=== PATIENT | female | born 1965 | race Caucasian/White ===

== ENCOUNTER 2018-12-15 20:34 | Inpatient (IN) | payer BC, OTHER ==
[2018-12-15 21:31] LABS: Basophils % (A) 1 %; Eosinophils # (A) 0.1 k/uL (0-0.7); Eosinophils % (A) 2 %; HCT 40.8 % (34.0-46.0); HGB 13.9 gm/dL (11.4-16.0); Lymphocytes # (A) 1.5 k/uL (1.0-4.8); Lymphocytes % (A) 23 %; MCHC 34.1 g/dL (31.0-37.0); MCV 88.2 fL (80.0-100.0); Mean Platelet Volume 7.1; Monocytes # (A) 0.3 k/uL (0-1.0); Monocytes % (A) 4 %; Neutrophils # (A) 4.8 k/uL (1.3-7.7); Neutrophils % (A) 69 %; Platelet Count 199 k/uL (150-450); RBC 4.62 m/uL (3.80-5.40); WBC 6.8 k/uL (3.8-10.6)
[2018-12-15 21:39] LABS: ALT 32 U/L (9-52); AST 21 U/L (14-36); Alkaline Phosphatase 84 U/L (38-126); Anion Gap 8 mmol/L; Blood Urea Nitrogen 12 mg/dL (7-17); Calcium 8.9 mg/dL (8.4-10.2); Carbon Dioxide 27 mmol/L (22-30); Chloride 105 mmol/L (98-107); Glucose 190 mg/dL (74-99); Magnesium 1.9 mg/dL (1.6-2.3); Potassium 3.3 mmol/L (3.5-5.1); Sodium 140 mmol/L (137-145); Total Bilirubin 0.3 mg/dL (0.2-1.3); Total Protein 6.9 g/dL (6.3-8.2)
--- NOTE | 2018-12-15 21:56 | XR ---
EXAMINATION TYPE: XR chest 2V DATE OF EXAM: 12/15/2018 COMPARISON: 11/06/2015 HISTORY: Chest pain TECHNIQUE: Frontal and lateral views of the chest are obtained. FINDINGS: Heart and mediastinum are normal. Lungs are clear. Diaphragm is normal. Bony thorax is int act. IMPRESSION: Normal chest. No change.
[2018-12-15 22:03] LABS: D-Dimer <0.17 mg/L FEU (<0.60); INR 0.9 (<1.2); Prothrombin Time 10.2 sec (9.0-12.0)
[2018-12-15] MEDS ORDERED: ASPIRIN 81 MG PO STA (22:35)
[2018-12-15] MEDS ORDERED: NITROGLYCERIN SL TABS 0.4 MG TAB SUBLINGUAL STA (23:17)
[2018-12-15] MEDS ORDERED: NITROGLYCERIN OINT 1 INCH/GM PACKET TOPICAL STA (23:18)
[2018-12-15] MEDS ORDERED: ACETAMINOPHEN TAB 325 MG TAB PO STA (23:36)
[2018-12-15] MEDS ORDERED: IBUPROFEN 400 MG TAB PO STA (23:36)
[2018-12-15] MEDS ORDERED: ONDANSETRON 4 MG/2 ML VIAL IVP STA (23:38)
[2018-12-15] MEDS ORDERED: NITROGLYCERIN SL TABS 0.4 MG TAB SUBLINGUAL PRN (23:42)
[2018-12-16] MEDS ORDERED: ENOXAPARIN 40 MG/0.4 ML SYRINGE SQ SCH (00:15)
--- NOTE | 2018-12-16 00:48 | ED ---
Chest Pain HPI - General Chief Complaint: Chest Pain Stated Complaint: Chest Pain Time Seen by Provider: 12/15/18 21:01 Source: patient, EMS Mode of arrival: EMS Limitations: no limitations - History of Present Illness Initial Comments: This patient is a 53-year-old woman who presents to be evaluated after having an episode of chest pain tonight. The patient states that the pain started approximately 3 hours ago. She had been driving home from a soccer game. She indicates the pain was and substernal area and seemed to radiate to her back. She describes as a severe heavy feeling and that there was some shortness of breath associated. Patient does state that the pain is resolved and she things that lasted about 20 minutes or so. She states that she did have similar episode to this years ago. She states that she was seen and had an elevated heart enzymes but that it was felt to be due to a viral infection. She states that she did have a heart catheterization performed after that and was told that it was normal. MD Complaint: chest pain -: hour(s) Onset: other (While driving) Pain Location: substernal Pain Radiation: back Severity: severe Quality: heaviness Consistency: now resolved Improves With: nothing Worsens With: nothing Anginal Symptoms: dyspnea Treatments Prior to Arrival: none - Related Data Home Medications Medication Instructions Recorded Confirmed Flaxseed Oil 1,000 mg PO DAILY 12/15/18 12/15/18 Iodine 1 dose PO DAILY 12/15/18 12/15/18 [place]-3 Fatty Acids/Fish Oil [Fish 1 cap PO DAILY 12/15/18 12/15/18 Oil 1,000 mg Softgel] Thyroid,Pork [Donner Thyroid] 60 mg PO DAILY 12/15/18 12/15/18 Allergies Allergy/AdvReac Type Severity Reaction Status Date / Time No Known Allergies Allergy Verified 12/15/18 21:22 Review of Systems ROS Statement: Those systems with pertinent positive or pertinent negative responses have been documented in the HPI. ROS Other: All systems not noted in ROS Statement are negative. Constitutional: Denies: fever, chills, weakness Respiratory: Reports: as per HPI, dyspnea. Denies: cough, wheezes Cardiovascular: Reports: chest pain. Denies: palpitations, orthopnea, edema, syncope Gastrointestinal: Denies: abdominal pain, nausea, vomiting Genitourinary: Denies: dysuria, hematuria Musculoskeletal: Denies: back pain Skin: Denies: rash Neurological: Denies: headache, weakness, numbness Past Medical History Past Medical History: Myocardial Infarction (CT), Thyroid Disorder History of Any Multi-Drug Resistant Organisms: None Reported Past Surgical History: Heart Catheterization Past Psychological History: No Psychological Hx Reported Smoking Status: Never smoker Past Alcohol Use History: None Reported Past Drug Use History: None Reported General Exam Limitations: no limitations General appearance: alert, in no apparent distress Head exam: Present: atraumatic, normocephalic Eye exam: Present: normal appearance ENT exam: Present: normal oropharynx Neck exam: Present: normal inspection Respiratory exam: Present: normal lung sounds bilaterally. Absent: respiratory distress, wheezes, rales, rhonchi, stridor Cardiovascular Exam: Present: regular rate, normal rhythm, normal heart sounds. Absent: systolic murmur, diastolic murmur, rubs, gallop GI/Abdominal exam: Present: soft. Absent: distended, tenderness, guarding, rebound Extremities exam: Present: normal inspection, normal capillary refill. Absent: pedal edema, calf tenderness Back exam: Present: normal inspection. Absent: CVA tenderness (R), CVA tenderness (L) Neurological exam: Present: alert Skin exam: Present: warm, dry, intact, normal color. Absent: rash Course Vital Signs 12/15/18 12/15/18 12/16/18 20:55 23:06 00:00 Temperature 98.5 F Pulse Rate 81 77 74 Respiratory 18 16 16 Rate Blood Pressure 187/100 165/101 139/86 O2 Sat by Pulse 97 98 95 Oximetry 12/16/18 06:10 Temperature Pulse Rate 77 Respiratory 16 Rate Blood Pressure 131/86 O2 Sat by Pulse 99 Oximetry - Reevaluation(s) Reevaluation #1: 12/16/18 08:12 Case discussed with supervisor winter and they will see the patient. Chest Pain [facility] Patient is 53-year-old woman with episode of chest pain earlier tonight lasting approximately 20 minutes that has resolved. She is symptom-free at the moment. Patient's description of pain is fairly typical and will be admitted. She does have minimal elevation of troponin though her EKG not showing what appears to be any active ischemia/infarction. Disposition Clinical Impression: Chest pain, Elevated troponin I measurement Disposition: ADMITTED IP TO THIS HOSP Condition: Serious Is patient prescribed a controlled substance at d/c from ED?: No
[2018-12-16] MEDS: ENOXAPARIN 80 MG/0.8 ML SYRINGE SQ SCH ×3 (02:23→22:26)
[2018-12-16 03:56] LABS: Cholesterol 193 mg/dL (<200); HDL Cholesterol 53 mg/dL (40-60); LDL Cholesterol,Calculated 130 mg/dL (0-99); Triglycerides 52 mg/dL (<150)
--- NOTE | 2018-12-16 09:29 | CONS ---
CONSULTATION CHIEF COMPLAINT: Chest pain. Caitlin is a 53-year-old lady with history of hypothyroidism who presented to hospital complaining of chest pain, which started around 7:30 yesterday while she was driving home from the soccer game. She describes it as a precordial chest pressure that radiated to her back. Describes it as a heavy sensation associated with shortness of breath. The pain gradually resolved after 20 minutes. She has had similar symptoms 15 years ago and apparently underwent cardiac catheterization at that time. She has had 2 sets of cardiac enzymes that are mildly elevated. At the time of my evaluation, she is comfortable at rest and is free of symptoms. REVIEW OF SYSTEMS: HEENT is unremarkable. CARDIAC: As described above RESPIRATORY: As described above. GI: Negative. GENITOURINARY: Negative. ALLERGY/IMMUNOLOGY: Negative. SKIN: Negative. MUSCULOSKELETAL: Negative. ENDOCRINE: Negative. DERM: Negative. CONSTITUTIONAL: Negative. ONCOLOGICAL: Negative. Rest of the system review is not relevant. PAST MEDICAL HISTORY: Past medical history is significant for hypothyroidism. SOCIAL HISTORY: Social history is negative for smoking, EtOH abuse or drug abuse. PHYSICAL EXAMINATION: On exam, she appears comfortable at rest. Vital signs are stable. There is no jugular venous distention. Carotid upstroke is normal. There is no bruit. Chest exam reveals good air entry bilaterally. Heart exam reveals first and second heart sounds. No gallop. No murmur. No rub. Abdomen is soft, nontender. Examination of extremities did not reveal any edema. Peripheral pulses are felt. LABS: Labs show a total cholesterol of 190, LDL is 130, HDL is 53. Tropes are 0.04 and 0.1. Hemoglobin is 13.9, platelet count is 199. Potassium is 3.3. Creatinine is normal at 0.75. ASSESSMENT: Acute non ST-segment elevation myocardial infarction. PLAN: I am going to obtain a 2-D echo on her. Review her EKG. Please supplement her potassium. I advised the patient to undergo cardiac catheterization to rule out ischemic heart disease. I will obtain a 2D echo to evaluate LV function and wall motion. JUSTO / DIAZ: [id number] /
[2018-12-16] MEDS ORDERED: ACETAMINOPHEN TAB 325 MG TAB PO STA (10:04)
[2018-12-16] MEDS: POTASSIUM CHLORIDE ER 20 MEQ TAB.ER PO SCH ×2 (10:17→10:55)
[2018-12-16] MEDS: ASPIRIN 325 MG TAB PO SCH (12:44)
[2018-12-16] MEDS: METOPROLOL SUCCINATE (ER) 25 MG TAB.ER.24H PO SCH (12:44)
[2018-12-16] MEDS: THYROID PORK 60 MG PO SCH (14:02)
--- NOTE | 2018-12-16 18:58 | ECHOF ---
Referral Reason:chest pain MEASUREMENTS -------- HEIGHT: 165.1 cm WEIGHT: 86.2 kg BP: IVSd: 1.4 cm (0.6 - 1.1) LVIDd: 4.5 cm (3.9 - 5.3) LVPWd: 1.4 cm (0.6 - 1.1) IVSs: 1.6 cm LVIDs: 4.2 cm LVPWs: 1.6 cm LA Diam: 3.2 cm (2.7 - 3.8) Ao Diam: 2.7 cm (2.0 - 3.7) AV Cusp: 2.0 cm (1.5 - 2.6) LA Diam: 3.0 cm (2.7 - 3.8) MV EXCURSION: 19.783 mm (> 18.000) MV EF SLOPE: 115 mm/s (70 - 150) EPSS: 0.4 cm MV E Jonh: 0.53 m/s MV DecT: 280 ms MV A Jonh: 0.94 m/s MV E/A Ratio: 0.56 RAP: 5.00 mmHg RVSP: 17.13 mmHg FINDINGS -------- Sinus rhythm. This was a technically adequate study. The left ventricular size is normal. There is moderate concentric left ventricular hypertrophy. O verall left ventricular systolic function is normal with, an EF between 55 - 60 %. The right ventricle is normal in size. The left atrial size is normal. The right atrial size is normal. Interatrial and interventricular septum intact. The aortic valve is trileaflet, and appears structurally normal. No aortic stenosis or regurgitation. Mild mitral annular calcification present. Mild mitral regurgitation is present. Mild tricuspid regurgitation present. There is no evidence of pulmonary hypertension. The right v entricular systolic pressure, as measured by Doppler, is 17.13mmHg. There is no pulmonic regurgitation present. The aortic root size is normal. Normal inferior vena cava with normal inspiratory collapse consistent with estimated right atrial pre ssure of 5 mmHg. There is no pericardial effusion. CONCLUSIONS -------- 1. The left ventricular size is normal. 2. There is moderate concentric left ventricular hypertrophy. 3. Overall left ventricular systolic function is normal with, an EF between 55 - 60 %. 4. The right ventricle is normal in size. 5. The left atrial size is normal. 6. The right atrial size is normal. 7. Interatrial and interventricular septum intact. 8. The aortic valve is trileaflet, and appears structurally normal. No aortic stenosis or regurgitati on. 9. Mild mitral annular calcification present. 10. Mild mitral regurgitation is present. 11. Mild tricuspid regurgitation present. 12. There is no evidence of pulmonary hypertension. 13. The right ventricular systolic pressure, as measured by Doppler, is 17.13mmHg. 14. There is no pulmonic regurgitation present. 15. The aortic root size is normal. 16. Normal inferior vena cava with normal inspiratory collapse consistent with estimated right atrial pressure of 5 mmHg. 17. There is no pericardial effusion. CENTRIFUGAL OPERATOR: Aysha Davis RDCS
[2018-12-16] MEDS ORDERED: ATORVASTATIN 40 MG TAB PO SCH (21:00)
--- NOTE | 2018-12-16 22:31 | HP ---
HISTORY AND PHYSICAL DATE OF ADMISSION: 12/15/2018 DATE OF SERVICE: 12/16/2018 PRESENTING COMPLAINT: Chest pain. HISTORY OF PRESENTING COMPLAINT: This is a very pleasant 53-year-old patient of Dr. Yin out of [employer]. Chronic stable medical conditions include hypothyroid. Patient was driving home with her daughter when she developed intense anterior chest wall pain. The pain also did go a bit to her back. Patient was somewhat short of breath. Pain went down the left arm and left arm was aching. All the symptoms lasted for a good hour. Patient had a troponin leak, peaking at 0.148. She was seen by Dr. Uvaldo Sullivan in the morning. At that time patient declined cardiac catheterization. Since then, patient has had no further symptoms. Patient has been on a therapeutic dose of Lovenox. No prior cardiac history. There was no dizziness. No lightheadedness. Patient recently has been feeling a bit tired. is present. REVIEW OF SYSTEMS: CONSTITUTIONAL: Tired. HEENT: None. RESPIRATORY: As above. CARDIOVASCULAR: As above. GASTROINTESTINAL: None. GENITOURINARY: None. MUSCULOSKELETAL: None. DERMATOLOGICAL: None. HEMATOLOGICAL: None. LYMPHATICS: None. PSYCHIATRY: None. NEUROLOGICAL: None. PAST MEDICAL HISTORY: 1. Hypothyroid. 2. Endocarditis. PAST SURGICAL HISTORY: Cardiac catheterization 13 years ago that was normal. SOCIAL HISTORY: . No smoking. No alcohol. FAMILY HISTORY: Congestive heart failure. Father of congestive heart failure, age of 79. HOME MEDICATIONS: 1. Iodine 1 dose a day. 2. Fish oil 1 capsule p.o. daily. 3. Flaxseed oil 1000 mg p.o. daily. 4. [place] Thyroid 60 mg a day. ALLERGIES: NONE. PHYSICAL EXAMINATION: Temperature 97.3, pulse 80, respiration 16, blood pressure 156/98, pulse ox 93% on room air. GENERAL APPEARANCE: Well built; BMI 31.6. Sitting up, not in distress. EYES: Pupils equal. Conjunctivae normal. HEENT: External appearance of nose and ears normal. Oral cavity normal. NECK: JVD not raised. Mass not palpable. RESPIRATORY: Effort normal. LUNGS: Fair air entry. CARDIOVASCULAR: First and second sounds normal. No edema. ABDOMEN: Soft, non-tender. Liver and spleen not palpable. LYMPHATIC: No lymph node palpable in neck or axillae. PSYCHIATRY: Alert and oriented x3. Mood and affect normal. NEUROLOGICAL: Pupils equal. Cranial nerves grossly intact. Power and sensation grossly intact. INVESTIGATIONS: White count 6.8, hemoglobin 13.9. Potassium 3.3. BUN and creatinine are normal. Troponin 0.046, 0.148, 0.059. LDL is 130. EKG tracing, personally reviewed by me, shows nonspecific ST-segment changes. Two-D echo shows moderate concentric left ventricular hypertrophy. No obvious wall motion abnormality. Chest x-ray film, personally reviewed by me, shows no evidence of lung field infiltrates. ASSESSMENT: 1. Cardiac-sounding presentation in a patient presenting now with an acute non-Q-wave myocardial infarction with a cardiac-sounding presentation with some rise and fall in troponin and nonspecific findings on the EKG. 2. Hypertensive heart disease. 3. Hypothyroidism. PLAN: The patient is on aspirin and Lovenox. I had a lengthy talk with the patient and her . Patient wishes to proceed with cardiac catheterization. I did tell the nurse to inform Cardiology evaluation engineer that the patient is agreeable to cardiac catheterization tomorrow morning. Patient will be made n.p.o. after midnight except for her medications. MMODL / IJN: [id number] /
--- NOTE | 2018-12-17 01:26 | US ---
EXAM: US Chest CLINICAL HISTORY: ITS.REASON US Reason: left upper chest wall r/o hematoma TECHNIQUE: Real-time ultrasound of the chest with image documentation. COMPARISON: No relevant prior studies available. FINDINGS: Soft tissues: Unremarkable. No mass or fluid collection. Lymph nodes: Unremarkable. No lymphadenopathy. IMPRESSION: Normal chest ultrasound.
[2018-12-17] MEDS: ASPIRIN 325 MG TAB PO SCH (06:35)
[2018-12-17] MEDS: METOPROLOL SUCCINATE (ER) 25 MG TAB.ER.24H PO SCH (06:35)
[2018-12-17] MEDS: THYROID PORK 60 MG PO SCH (06:35)
[2018-12-17 08:36] LABS: Calcium 9.3 mg/dL (8.4-10.2); Potassium 4.2 mmol/L (3.5-5.1)
[2018-12-17 08:50] VITALS: RESP 18
--- NOTE | 2018-12-17 10:31 | CONS ---
DATE OF CONSULTATION: 12/16/2018 This is a 53-year-old female. She has been admitted to [facility] with chest pain. Patient has a mildly elevated troponin. Patient has a cardiac workup including 2D echo. I was called in when the patient developed sudden onset of hematoma in the anterior chest wall. No history of trauma. Patient is on Lovenox. No history of any discomfort. There is slight tenderness noted along the anterior chest wall. MEDICAL HISTORY: History of hypothyroidism. Patient had a heart cath 15 years ago. PHYSICAL EXAMINATION: Patient was seen in her room, lying comfortably in bed. NECK: Supple. No bruit appreciated. CHEST: Clear. There is a hematoma noted on the chest wall on the left side which is not expanding, most likely venous in origin. At this point, hematoma was decompressed and will watch very closely. Patient is scheduled to have an ultrasound of the hematoma. Will hold the Lovenox and discussed with Dr. Ramírez if this is expanding, we will consider doing CT. At this point, patient is very stable. MMODL / IJN: [id number] / MTDD
[2018-12-17] MEDS ORDERED: ATORVASTATIN 80 MG TAB PO STA (11:08)
[2018-12-17] MEDS ORDERED: SODIUM CHLORIDE 0.9% 1,000 ML in EMPTY BAG 1 BAG IV ONE (11:08)
[2018-12-17] MEDS ORDERED: ALPRAZolam 0.5 MG TAB PO PRN (11:08)
[2018-12-17] MEDS ORDERED: NITROGLYCERIN SL TABS 0.4 MG TAB SUBLINGUAL PRN (11:08)
[2018-12-17] MEDS ORDERED: ALPRAZolam 0.25 MG TAB PO PRN (11:08)
[2018-12-17] MEDS ORDERED: ASPIRIN 325 MG TAB PO STA (11:08)
[2018-12-17] MEDS ORDERED: LIDOCAINE 1% INJ 10MG/ML (20 ML MDV) ONE (11:52)
[2018-12-17] MEDS ORDERED: HEPARIN SODIUM 1,000 UN/ML (10ML VL) ONE (11:52)
[2018-12-17] MEDS ORDERED: fentaNYL (PF) 50 MCG/ML 2 ML AMP ONE (11:52)
[2018-12-17] MEDS ORDERED: VERAPAMIL 2.5 MG/ML 2 ML AMP ONE (11:52)
[2018-12-17] MEDS ORDERED: SODIUM CHLORIDE 0.9% 1,000 ML IV ONE (12:12)
[2018-12-17] MEDS ORDERED: fentaNYL (PF) 50 MCG/ML 2 ML AMP IVP ONE (12:18)
[2018-12-17] MEDS ORDERED: MIDAZOLAM (PF) 2 MG/2 ML VIAL IVP ONE (12:18)
[2018-12-17] MEDS ORDERED: LIDOCAINE 2% INJ 20 MG/ML SQ ONE (12:20)
[2018-12-17] MEDS ORDERED: HEPARIN SODIUM 1,000 UN/ML (10ML VL) IV ONE (12:25)
[2018-12-17] MEDS ORDERED: IOPAMIDOL-370 125ML BTL INJ ONE (12:30)
[2018-12-17] MEDS ORDERED: RX INFO: IV CONTRAST WAS GIVEN 1 EACH MISC MISCELLANE PRN (12:46)
[2018-12-17] MEDS ORDERED: SODIUM CHLORIDE 0.9% 1,000 ML IV SCH (13:00)
[2018-12-17] MEDS ORDERED: amLODIPine 5 MG TAB PO SCH (13:00)
[2018-12-17 14:54] VITALS: TEMP 98.2
--- NOTE | 2018-12-17 15:31 | CC ---
CARDIAC CATHETERIZATION REPORT Mrs. Chen is a 53-year-old female with no documented history of obstructive coronary artery disease, who presented to the emergency room with episode of chest discomfort, no EKG changes, but with minimal enzymatic changes. In view of that, recommendation made regarding cardiac catheterization. The procedure as well as risks and complications were discussed with the patient who is in full understanding and agreement. PROCEDURE: Patient was brought to lab director in the fasting state after receiving fentanyl and Benadryl and achieving moderate conscious sedated state. Using Xylocaine anesthesia and Seldinger technique, a 6-Telugu sheath was introduced in the right radial artery. Selective right and left coronary angiography performed using 5-Telugu 3 and half bend right and left Catrachita catheter multiple views including hemiaxial views obtained. Following that, a 5-Telugu tight pigtail catheter was introduced in the left ventricle and a 30 degree BRICEÑO view of the left ventricle was obtained. Following that, catheter and sheaths were removed. Hemostasis was obtained with deployment of TR band. There was no immediate complication. Patient was returned to her room in stable condition. Of note, the patient received 4500 units of intravenous heparin as well as intra- arterial verapamil. FINDINGS: LEFT MAIN : This is a large-sized vessel trifurcating into left circumflex, left anterior descending artery and ramus intermedius, left main coronary artery has no evidence of high-grade stenosis. LEFT ANTERIOR DESCENDING ARTERY: This is a large-sized vessel tapers down to the distal third, giving rise to small diagonal branch. The left anterior descending artery as well as branches have no evidence of obstructive coronary artery disease. RAMUS INTERMEDIUS: This is a large-sized vessel reaching to the apical lateral wall. The left circumflex as well as branches have no evidence of obstructive coronary artery disease. LEFT CIRCUMFLEX: This is a large nondominant vessel giving rise to 2 obtuse marginal branches. The left circumflex as well as branches have no evidence of obstructive disease. RIGHT CORONARY ARTERY: This is a large dominant vessel bifurcating distally PDA and posterolateral segment branches. The right coronary artery and its branches have no evidence of obstructive coronary artery disease. LEFT VENTRICULOGRAM: Left ventriculogram was performed in 30 degree BRICEÑO view and reveals normal left ventricular size and systolic function. Ejection fraction 60%. There was no significant mitral regurgitation. HEMODYNAMICS: There was no gradient across the aortic valve. The left ventricular end-diastolic pressure was 12-14 mmHg. CONCLUSION: 1. Normal coronary arteries. 2. Normal left ventricular size and systolic function. RECOMMENDATIONS: It is possible that her symptoms are related vasospastic coronary artery disease. I see no evidence of obstructive coronary artery disease. I will continue medical therapy and depending on her progress, further recommendations will be made. Those findings and recommendations were discussed with the patient and her family and they are in full understanding and agreement. Duration of procedure is 18 minutes. MMODL / IJN: [id number] /
[2018-12-17 17:22] VITALS: BP 136/83; PULSE 79
--- NOTE | 2018-12-18 00:09 | DS ---
DISCHARGE SUMMARY DATE OF ADMISSION: 12/16/2018 DATE OF DISCHARGE: 12/17/2018. FINAL DIAGNOSES: 1. Possible acute non-Q-wave myocardial infarction, could be from underlying vasospastic disease. 2. Hypertensive heart disease. 3. Hypothyroidism. 4. Small spontaneous hematoma. HOSPITAL COURSE: This patient with a rather very classical cardiac sounding presentation and also add troponins with the rise and fall from 0.046-0.148 down to 0.059. Cardiac cath did show normal coronaries. Impression of Dr. Real that this could be vasospastic disease. The patient did have a small spontaneous hematoma anterior chest wall that settled down. Care was discussed with the patient today and also with the . PHYSICAL EXAMINATION: On examination temperature 98.2, pulse 76, respiratory rate 18, blood pressure 138/81, pulse ox 95% on room air. It may be noted that the patient's blood pressure was running high before. Medications were changed. LUNGS are clear. CARDIOVASCULAR: First and second sounds normal. LDL is 130. Blood pressure was up to 160s. DISCHARGE MEDICATIONS: 1. Thyroid [place] 60 mg a day. 2. Aspirin 81 mg daily. 3. Lipitor 40 mg q.h.s. 4. Toprol-XL 25 mg a day. 5. Norvasc 5 mg q.h.s. Follow up with Dr. Jr Yin in [place] in 1 week, follow up with Dr. Uvaldo Sullivan in [address] Yin [place]. MMGILBERTL / SURINDERN: [id number] /
[2018-12-18] MEDS ORDERED: ASPIRIN 81 MG PO SCH (09:00)
== END 2018-12-17 17:57 | disposition home or self-care (01) | DRG 282 ==
LOC: EC 20:34 → 1SOBS 12-16 00:04 → 3SCARD 12-16 04:50 → 2ORMAIN 12-16 08:58 → 3SCARD 12-16 10:49 → OBSVTOIN 12-16 14:03
PROVIDERS: ADMIT Hospitalist; ATTEND Hospitalist
PROC: B2111ZZ Fluoroscopy of Multiple Coronary Arteries using Low Osmolar Contrast (ICD-10-PCS; 2018-12-17)
PROC: B2151ZZ Fluoroscopy of Left Heart using Low Osmolar Contrast (ICD-10-PCS; 2018-12-17)
PROC: 4A023N7 Measurement of Cardiac Sampling and Pressure, Left Heart, Percutaneous Approach (ICD-10-PCS; principal; 2018-12-17 12:00)
DX: I21.4 Non-ST elevation (NSTEMI) myocardial infarction (principal); I11.9 Hypertensive heart disease without heart failure; E03.9 Hypothyroidism, unspecified; M79.81 Nontraumatic hematoma of soft tissue; Z79.899 Other long term (current) drug therapy; Z86.79 Personal history of other diseases of the circulatory system; Z82.49 Family history of ischemic heart disease and other diseases of the circulatory system
CPT/HCPCS: 36415; 71046; 80048; 80053; 80061; 83735; 84484; 85025; 85379; 85610; 85730; 93005; 93306; 93458

== ENCOUNTER → 2019-08-14 | Outpatient (CLI) | payer BC ==
--- NOTE | 2019-08-14 10:53 | MM ---
Reason for exam: screening (asymptomatic). Baseline mammogram. History: Patient is postmenopausal. Took hormonal contraceptives for 3 years beginning at age 19. Physical Findings: Nurse did not find any significant physical abnormalities on exam. MG Screening Mammo w CAD Bilateral CC and MLO view(s) were taken. There are scattered fibroglandular densities. Lateral nodularity right CC view. These results were verbally communicated with the patient and result sheet given to the patient on 08/14/19. ASSESSMENT: Incomplete: need additional imaging evaluation, BI-RAD 0 RECOMMENDATION: Special view mammogram of the right breast. (3D)
--- NOTE | 2019-08-14 10:55 | MM ---
Reason for exam: additional evaluation requested from abnormal screening. History: Patient is postmenopausal. Took hormonal contraceptives for 3 years beginning at age 19. Physical Findings: Breast exam preformed at baseline screening. MG 3D Work Up W/Cad RT Spot compression CC and LM view(s) were taken of the right breast. There are scattered fibroglandular densities. Nodularity separates from asymmetric density laterally in the right breast. The nodualrity is suggestive of intermammary nodes. No correlate on true lateral. 6 month follow up recommended. These results were verbally communicated with the patient and result sheet given to the patient on 08/14/19. ASSESSMENT: Probably benign, BI-RAD 3 RECOMMENDATION: Follow-up diagnostic mammogram of the right breast in 6 months.
== END | disposition home or self-care (01) ==
LOC: RADMAMWWP 08:35
PROVIDERS: ATTEND Family Medicine
DX: Z12.31 Encounter for screening mammogram for malignant neoplasm of breast (principal); R92.8 Other abnormal and inconclusive findings on diagnostic imaging of breast
CPT/HCPCS: 77061; 77065; 77067

== ENCOUNTER → 2020-09-04 | Outpatient (CLI) | payer OTHER ==
--- NOTE | 2020-09-05 06:46 | US ---
EXAMINATION TYPE: US pelvic complete DATE OF EXAM: 09/04/2020 COMPARISON: NONE CLINICAL HISTORY: R10.2 Pelvic and perineal pain. Generalized pelvic pain. TECHNIQUE: Transabdominal (TA). Transabdominal sonographic images of the pelvis were acquired. Date of LMP: unknown, EXAM MEASUREMENTS: Uterus: 7.2 x 3.4 x 4.2 cm Endometrial Stripe: 0.3 cm Right Ovary: 2.9 x 1.7 x 1.5 cm Left Ovary: 2.9 x 1.4 x 1.0 cm 1. Uterus: Anteverted wnl 2. Endometrium: wnl 3. Right Ovary: wnl 4. Left Ovary: wnl 5. Bilateral Adnexa: wnl 6. Posterior cul-de-sac: no free fluid IMPRESSION: Unremarkable transabdominal pelvic ultrasound study.
== END | disposition home or self-care (01) ==
LOC: RADUSWWP 16:09
PROVIDERS: ATTEND Family Medicine
DX: R10.2 Pelvic and perineal pain (principal)
CPT/HCPCS: 76856

== ENCOUNTER → 2020-12-02 | Outpatient (CLI) | payer OTHER ==
--- NOTE | 2020-12-04 10:22 | MM ---
Reason for exam: screening (asymptomatic). Last mammogram was performed 1 year and 4 months ago. History: Patient is postmenopausal. Took hormonal contraceptives for 3 years beginning at age 19. Physical Findings: A clinical breast exam by your physician is recommended on an annual basis and results should be correlated with mammographic findings. MG 3D Screening Mammo W/Cad Bilateral CC and MLO view(s) were taken. Prior study comparison: August 14, 2019, right breast MG 3d work up w/cad RT. August 14, 2019, bilateral MG screening mammo w CAD. The breast tissue is heterogeneously dense. This may lower the sensitivity of mammography. There is chronic nodularity bilaterally. No significant changes when compared with prior studies. ASSESSMENT: Benign, BI-RAD 2 RECOMMENDATION: Routine screening mammogram of both breasts in 1 year.
== END | disposition home or self-care (01) ==
LOC: RADMAMWWP 16:18
PROVIDERS: ATTEND Family Medicine
DX: Z12.31 Encounter for screening mammogram for malignant neoplasm of breast (principal)
CPT/HCPCS: 77063; 77067

== ENCOUNTER 2023-04-01 06:47 | Day surgery (SDC) | payer OTHER ==
[2023-03-25 13:44] VITALS: BMI 29.9
[2023-04-01 07:05] VITALS: TEMP 98
[2023-04-01] MEDS ORDERED: LACTATED RINGERS 1,000 ML IV ONE ×2 (07:05→08:33)
[2023-04-01] MEDS ORDERED: PROPOFOL 10 MG/ML 20 ML VIAL IV ONE (07:36)
--- NOTE | 2023-04-01 07:49 | P.GSHP ---
History of Present Illness H&P Date: 04/01/23 CHIEF COMPLAINT: Colon screen HISTORY OF PRESENT ILLNESS: The patient is a 57-year-old female who presents for colon screen. Lower endoscopy was offered for further evaluation and management. PAST MEDICAL HISTORY: Please see list. PAST SURGICAL HISTORY: Please see list. MEDICATIONS: Please see list. ALLERGIES: Please see list. SOCIAL HISTORY: No illicit drug use FAMILY HISTORY: No reports of Crohn disease or ulcerative colitis. REVIEW OF ORGAN SYSTEMS: CONSTITUTIONAL: No reports of fevers or chills. PHYSICAL EXAM: VITAL SIGNS: Stable GENERAL: Well-developed pleasant in no acute distress. HEENT: No scleral icterus. Extraocular movements grossly intact. Moist buccal mucosa. NECK: Supple without lymphadenopathy. CHEST: Unlabored respirations. Equal bilateral excursions. CARDIOVASCULAR: Regular rate and rhythm. Distal 2+ pulses. ABDOMEN: Soft, nontender, nondistended. MUSCULOSKELETAL: No clubbing, cyanosis, or edema. ASSESSMENT: 1. Colon screen. PLAN: 1. 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 History of Any Multi-Drug Resistant Organisms: None Reported Past Surgical History: Heart Catheterization Additional Past Surgical History / Comment(s): cardica cath x2-[id number] Additional Past Anesthesia/Blood Transfusion Reaction / Comment(s): Pt has never had general anesthesia. Past Psychological History: No Psychological Hx Reported Smoking Status: Never smoker Past Alcohol Use History: None Reported Past Drug Use History: None Reported - Past Family History Father Family Medical History: Congestive Heart Failure (CHF) Additional Family Medical History / Comment(s): Father of CHF at the age of 79-80yrs. 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
--- NOTE | 2023-04-01 08:14 | P.PCN ---
Date of Procedure: 04/01/23 Description of Procedure: PREOPERATIVE DIAGNOSIS: Family history colon cancer Colonoscopy screening. POSTOPERATIVE DIAGNOSIS: Family history colon cancer Colonoscopy screening. OPERATION: Colonoscopy to the cecum, ileocecal valve and appendiceal orifice. SURGEON: Marimar Mercado MD. ANESTHESIA: MAC. INDICATIONS: The patient is a 57-year-old female who presents for her first colonoscopy screening. Benefits and risks were described and informed consent was obtained. DESCRIPTION OF PROCEDURE: The patient had undergone Sutab prep. The patient had been brought into the operating room and laid in the left lateral decubitus position. After adequate intravenous sedation, the rectum was examined with 2% lidocaine jelly. External hemorrhoids were encountered. The rectal tone was within normal limits. No lesions were palpated in the rectal vault. An Olympus colonoscope was advanced until the cecum, ileocecal valve and appendiceal orifice were clearly viewed. The prep was excellent. No scattered diverticulosis was encountered. No colonic polyps were found. No evidence of focal colitis was found. Retroflexion of the scope demonstrated grade 2 internal hemorrhoids without active bleeding or inflammation. The colon was desufflated. The patient had tolerated the procedure well. Withdrawal time was over 6 minutes. FINDINGS: Aronchick preparation quality scale (1-5) Internal hemorrhoids, grade 2 External prolapsed hemorrhoids, grade 2 No arteriovenous malformations. No adenomatous polyps. No focal colitis. RECOMMENDATIONS: Lower endoscopy in 5 years2027 Plan - Discharge Summary Discharge Rx Participant: No New Discharge Prescriptions: Continue Thyroid,Pork [Digester Operator Thyroid] 60 mg PO DAILY Discharge Medication List Thyroid,Pork [Digester Operator Thyroid] 60 mg PO DAILY 03/25/23 [History] Follow up Appointment(s)/Referral(s): Marimar Mercado MD [STAFF PHYSICIAN] - As Needed Patient Instructions/Handouts: Moderate Sedation (GEN) Activity/Diet/Wound Care/Special Instructions: Repeat colonoscopy 5 years, 2027 Discharge Disposition: HOME SELF-CARE
[2023-04-01 08:16] VITALS: RESP 16
[2023-04-01 08:28] VITALS: BP 149/94; PULSE 71
== END 2023-04-01 09:14 | disposition home or self-care (01) ==
LOC: ORWHC2ENDO 06:47
PROVIDERS: ATTEND Surgery Plastic and Reconstructive Surgery
DX: Z12.11 Encounter for screening for malignant neoplasm of colon (principal); Z80.0 Family history of malignant neoplasm of digestive organs; I25.2 Old myocardial infarction; Z82.49 Family history of ischemic heart disease and other diseases of the circulatory system; E07.9 Disorder of thyroid, unspecified; T46.5X5D Adverse effect of other antihypertensive drugs, subsequent encounter; I10 Essential (primary) hypertension
CPT/HCPCS: J2704; G0121

== ENCOUNTER → 2023-07-02 | Outpatient (CLI) | payer OTHER ==
--- NOTE | 2023-07-02 15:53 | US ---
EXAMINATION TYPE: US kidneys/renal and bladder DATE OF EXAM: 07/02/2023 COMPARISON: NONE CLINICAL INDICATION: Female, 58 years old with history of N32.89 OTHER DISORDERS OF BLADDER; UTI symp toms EXAM MEASUREMENTS: Right Kidney: 10.7 x 4.7 x 4.6 cm Left Kidney: 9.9 x 6.4 x 5.4 cm Right Kidney: 1.7cm cystic area lateral inferior pole, inferior pole limited by overlying bowel gas Left Kidney: wnl, inferior pole limited by overlying bowel gas Bladder: wnl Bilateral Jets seen: yes There is no evidence for hydronephrosis at this point in time. No nephrolithiasis is seen. No solid masses are identified. Thin-walled cyst identified within the lateral inferior pole of the right kid lucero. Corticomedullary differentiation is maintained. The urinary bladder is anechoic. Bilateral uret eral jets are seen. IMPRESSION: 1. No hydronephrosis or nephrolithiasis. 2. Simple right renal cyst.
== END | disposition home or self-care (01) ==
LOC: RADUSWWP 15:20
PROVIDERS: ATTEND Family Medicine
DX: N32.89 Other specified disorders of bladder (principal); N28.1 Cyst of kidney, acquired
CPT/HCPCS: 76770

== ENCOUNTER → 2024-02-18 | Outpatient (CLI) | payer OTHER ==
[2024-02-18 17:24] LABS: Basophils # (A) 0.07 X 10*3/uL (0.00-0.10); Basophils % (A) 1.2 %; Eosinophils # (A) 0.19 X 10*3/uL (0.04-0.35); Eosinophils % (A) 3.2 %; HCT 47.3 % (37.2-46.3); HGB 14.9 g/dL (12.0-15.0); Lymphocytes # (A) 2.09 X 10*3/uL (0.90-5.00); Lymphocytes % (A) 35.4 %; MCH 28.3 pg (27.0-32.0); MCHC 31.5 g/dL (32.0-37.0); MCV 89.8 FL (80.0-97.0); Mean Platelet Volume 10.6 FL (9.5-12.2); Monocytes % (A) 6.8 %; NRBC Per 100 WBC 0 X 10*3/uL (0.00-0.01); Neutrophils # (A) 3.15 X 10*3/uL (1.80-7.70); Neutrophils % (A) 53.2 %; Platelet Count 212 X 10*3/uL (140-440); RBC 5.27 X 10*6/uL (4.10-5.20); RDW 13.2 % (11.5-14.5); WBC 5.91 X 10*3/uL (4.50-10.00)
[2024-02-18 17:51] LABS: ALT 25 U/L (8-44); AST 24 U/L (13-35); Albumin 4.7 g/dL (3.8-4.9); Albumin/Globulin Ratio 1.74 Ratio (1.60-3.17); Alkaline Phosphatase 84 U/L (41-126); BUN/Creat Ratio 15.91 Ratio (12.00-20.00); Blood Urea Nitrogen 17.5 mg/dL (9.0-27.0); Carbon Dioxide 29.5 mmol/L (21.6-31.8); Chloride 102 mmol/L (96-109); Chol/HDL Ratio 3.95 Ratio; Globulin 2.7 g/dL (1.6-3.3); Glucose 112 mg/dL (70-110); LDL Cholesterol,Calculated 186.8 mg/dL (0.0-131.0); Potassium 4.1 mmol/L (3.5-5.5); Sodium 143 mmol/L (135-145); T4, Free (Free Thyroxine) 1.02 ng/dL (0.80-1.80); Total Bilirubin 0.4 mg/dL (0.3-1.2); Total Protein 7.4 g/dL (6.2-8.2)
== END | disposition home or self-care (01) ==
LOC: LABWHC1 08:23
PROVIDERS: ATTEND Family Medicine
DX: E03.9 Hypothyroidism, unspecified (principal); E78.5 Hyperlipidemia, unspecified; R53.83 Other fatigue
CPT/HCPCS: 36415; 80053; 80061; 82533; 84439; 84443; 84481; 85025